=== PATIENT | female | born 1970 | race Caucasian/White ===

== ENCOUNTER 2023-05-29 13:07 | Emergency (ER) | payer OTHER, SELFPAY ==
[2023-05-29 13:20] VITALS: BP 117/58
--- NOTE | 2023-05-29 14:54 | ED.GENMED ---
History of Present Illness
General
Chief Complaint: DVT/Possible Blood Clot
Source: patient
Time Seen by Provider: 05/29/23 14:49
Travel History
Have you had any contact with someone who has COVID-19?: No
Do you have any symptoms of coronavirus? Fever > 100 degrees, chills, cough, shortness of breath, sore throat, loss of taste or smell, muscle aches, or headache?: No
History of Present Illness
History of Present Illness:
53-year-old female with no significant past medical history presenting emergency department for evaluation at the request of her primary care physician to obtain ultrasound to rule out DVT of her right lower extremity. Patient reports that over the
last few weeks she has had intermittent pain and swelling to various extremities but over the last 3 days she has noticed pain more pronounced within the right gastrocnemius. She denies any history of similar symptoms, fevers or infectious
symptoms, DVT risk factors including recent travel, prolonged sedentary status, known history of cancer, family history. Presently without any other concerns.
Past History
Past History
ED Past Medical History: None
ED Past Surgical History: Appendectomy
Social History
Tobacco: Non-smoker
Alcohol: Occasional
Drug: None
Personal:
Living: with family
Employment: Not employed
Review of Systems
Review of Systems
All Other Systems: ROS reviewed and negative except as documented in HPI and ROS
Phy Exam
Physical Exam
Physical Exam:
GENERAL: Alert , in no apparent distress
EYE: conjunctiva clear
Head: Normocephalic atraumatic
NECK: Supple,
ENT: mmm.
LUNGS: no acute respiratory distress
NEUROLOGICAL: Alert and oriented
SKIN: Warm and dry, skin intact.
MUSCULOSKELETAL: well perfused. Easily palpable pedal and tibial pulses bilateral lower extremities. Sensation grossly intact to light touch. No observable edema to either lower extremity. Patient allows for full active and passive range of
motion and is ambulatory with steady gait
PSYCH: Normal and appropriate interaction.
Scores
Heart Failure Risk
Heart Failure Risk Score: Not Applicable
Heart Score for Chest Pain Patients
STEMI patient?: Not applicable
Withdrawal Assessment of Alcohol
Withdrawal Assessment Completed?: Not applicable
Course
Orders/Labs/Results
Orders:
Orders
05/29/23 13:24
Venous Doppler Lwr Ext Rt [US Perip Venous LOWER Ext RT] Urgent
Comment:
Reason For Exam: pain
Vital Signs
Initial and Last Documented VS:
Initial Vital Signs
Temp Pulse Resp BP Pulse Ox
98.7 F 104 18 117/58 100
05/29/23 13:20 05/29/23 13:20 05/29/23 13:20 05/29/23 13:20 05/29/23 13:20
Last Documented Vital Signs
Temp Pulse Resp BP Pulse Ox
98.7 F 104 18 117/58 100
05/29/23 13:20 05/29/23 13:20 05/29/23 13:20 05/29/23 13:20 05/29/23 13:20
MDM/Problems Addressed
Differential Diagnosis Includes:
DVT, muscle strain, varicose veins, rheumatological condition, no concern for arterial compromise,
MDM/Problems Addressed:
53-year-old female present emergency department for evaluation at the request of primary care physician to rule out DVT. Ultrasound was ordered from triage and ultimately negative for any acute pathology. Overall at this time there does not seem
to be a clear etiology for patient's symptoms but there does not appear to be an emergent pathology. Advised patient follow-up closely with her primary care physician. Discussed return precautions. Stable for discharge.
*Radiology
Radiology exam reviewed: radiology read reviewed
*Pulse Oximetry
Patient hypoxic: no
*Critical Care Note
Total Time (30-74mins, 75-104mins- exclusive of procedures): Not Applicable
ED Attending Note
-
Portions of this chart may have been created with voice recognition software.� Occasional wrong word or��sound alike� substitutions may have occurred due to the inherent limitations of voice recognition software.
Discharge Plan
Departure
Patient Disposition: Home (Routine Discharge)
Date of Disposition: 05/29/23
Time of Disposition: 14:55
Patient with high blood pressure during this ER visit?: No
Discharge Problem:
Pain and swelling of right lower extremity
Instructions: Lower Extremity Muscle Strain (DC)
Prescriptions:
No Action
No Current Medications
0
Referrals:
Blair Mann MD [Family Provider] -
Interventions
Interventions:
*Nursing Disposition Last Done: 05/29/23 14:59
ED- Cardiac Assessment Last Done: 05/29/23 14:02
ED- Pulmonary Assessment Last Done: 05/29/23 14:02
ED-Peripheral Vascular Assessment Last Done: 05/29/23 14:02
ED-Skin Assessment Last Done: 05/29/23 14:02
Discharge Date and Time
Discharge Date/Time: 05/29/23 15:09
== END 2023-05-29 15:09 | disposition home or self-care (01) ==
LOC: EMR 13:07
PROVIDERS: EMERGENCY PHYSICIAN Emergency Medicine; FAMILY PHYSICIAN Family Medicine
DX: M79.661 Pain in right lower leg (principal); R22.41 Localized swelling, mass and lump, right lower limb
CPT/HCPCS: 99284; 93971